=== PATIENT | female | born 1985 | race Caucasian/White ===

== ENCOUNTER 2016-12-13 17:52 | Emergency (ER) | payer SELFPAY ==
[2016-12-13 18:06] VITALS: BP 137/80
--- NOTE | 2016-12-13 19:23 | ER Document Report ---
HPI - HPI Patient complains to provider of: Sore throat and fever Onset: Other Onset/Duration: Gradual Quality of pain: Achy, Burning Severity: Severe Pain Level: 5 Context: Patient states she has had a sore throat and a fever for a couple of days. Patient has a history of strep. Patient has multiple allergies but states she can take a Z-Feliciano and Bactrim. Associated Symptoms: Fever, Sore throat Exacerbated by: Denies Relieved by: Denies Similar symptoms previously: Yes Recently seen / treated by doctor: No - ROS ROS below otherwise negative: Yes Systems Reviewed and Negative: Yes All other systems reviewed and negative - CONSTITUTIONAL Constitutional: REPORTS: Fever - EENT EENT: REPORTS: Sore Throat. DENIES: Congestion - NEURO Neurology: DENIES: Headache - CARDIOVASCULAR Cardiovascular: DENIES: Chest pain - RESPIRATORY Respiratory: DENIES: Trouble Breathing - GASTROINTESTINAL Gastrointestinal: DENIES: Abdominal Pain - URINARY Urinary: DENIES: Dysuria - REPRODUCTIVE Reproductive: DENIES: : - MUSCULOSKELETAL Musculoskeletal: DENIES: Extremity pain - DERM Skin Color: Normal Past Medical History - General Information source: Patient - Social History Smoking Status: Current Some Day Smoker Cigarette use (# per day): Yes Frequency of alcohol use: Occasional Drug Abuse: None Lives with: Family Family History: Reviewed & Not Pertinent - Medical History Medical History: Negative Surgical Hx: Negative - Immunizations Hx Diphtheria, Pertussis, Tetanus Vaccination: Yes - 2013 [facility] Provider Document - CONSTITUTIONAL Agree With Documented VS: Yes Exam Limitations: No Limitations General Appearance: WD/WN, No Apparent Distress - INFECTION CONTROL TRAVEL OUTSIDE OF THE [place] IN LAST 30 DAYS: No - HEENT HEENT: Atraumatic, Normocephalic, Pharyngeal Erythema. negative: Pharyngeal Exudate Notes: TMs normal. - NECK Neck: Lymphadenopathy-Left, Lymphadenopathy-Right - RESPIRATORY Respiratory: Breath Sounds Normal, No Respiratory Distress O2 Sat by Pulse Oximetry: 100 - CARDIOVASCULAR Cardiovascular: Regular Rate, Regular Rhythm - GI/ABDOMEN Gastrointestinal: Abdomen Soft - MUSCULOSKELETAL/EXTREMETIES Musculoskeletal/Extremeties: MAEW - NEURO Level of Consciousness: Awake, Alert, Appropriate - DERM Integumentary: Warm, Dry, No Rash Course - Vital Signs Vital signs: Temp Pulse Resp BP Pulse Ox 98.9 F 87 18 137/80 H 100 12/13/16 18:06 12/13/16 18:06 12/13/16 18:06 12/13/16 18:06 12/13/16 18:06 Discharge - Discharge Clinical Impression: Pharyngitis Qualifiers: Pharyngitis/tonsillitis etiology: unspecified etiology Qualified Code(s): J02.9 - Acute pharyngitis, unspecified Condition: Good Disposition: HOME, SELF-CARE Additional Instructions: Finish antibiotics as prescribed Tylenol or Motrin as needed for pain and/or fever Salt water gargles or lozenges Replace your toothbrush in 2 days Follow-up with your primary care doctor or return if symptoms worsen. Prescriptions: Azithromycin [Zithromax 250 mg Tablet] 250 mg PO ASDIR PRN #6 tablet PRN Reason: Forms: Return to Work
== END 2016-12-13 19:42 | disposition home or self-care (01) ==
LOC: ER 17:52
DX: J02.9 Acute pharyngitis, unspecified (principal); R50.9 Fever, unspecified; F17.210 Nicotine dependence, cigarettes, uncomplicated
CPT/HCPCS: 99282

== ENCOUNTER 2019-02-15 19:42 | Emergency (ER) | payer SELFPAY ==
[2019-02-15] MEDS ORDERED: ONDANSETRON 4 MG TAB.RAPDIS PO ONE (20:33)
[2019-02-15] MEDS ORDERED: KETOROLAC TROMETHAMINE 60 MG/2 ML SDV IM ONE (20:33)
[2019-02-15] MEDS ORDERED: NORMAL SALINE 1000 ML 1,000 ML IV ONE (20:33)
--- NOTE | 2019-02-15 20:35 | ER Document Report ---
ED Medical Screen (RME) - General Chief Complaint: Flank Pain Stated Complaint: LEFT SIDE PAIN/VOMITING Time Seen by Provider: 02/15/19 20:27 TRAVEL OUTSIDE OF THE [place] IN LAST 30 DAYS: No - HPI Notes: 02/15/19 20:34 33-year-old female to the emergency department with complaints of left-sided flank pain that began suddenly this afternoon at about approximately 4 PM. She has had associated radiation into her left abdomen as well as nausea and vomiting. She denies any fevers or chills. She denies any diarrhea. She is never had a kidney stone. Her sister has had kidney stones. She has not seen a ny blood in her urine. She denies any dysuria or frequency. I have performed a brief medical screening exam on the patient and determined that she will need further management and evaluation by main side provider. I placed initial orders to help expedite her care this evening. - Related Data Allergies/Adverse Reactions: clindamycin [Clindamycin] Allergy (Verified 12/13/16 18:05) latex Allergy (Verified 02/15/19 20:30) Penicillins Allergy (Verified 12/13/16 18:05) cephalexin monohydrate [From Keflex] Adverse Reaction (Verified 12/13/16 18:05) doxycycline [Doxycycline] Adverse Reaction (Verified 12/13/16 18:05) erythromycin base [Erythromycin Base] Adverse Reaction (Verified 12/13/16 18:05) all antibiotics Allergy (Intermediate, Uncoded 12/13/16 18:05) Hives Past Medical History Renal/ Medical History: Denies: Hx Peritoneal Dialysis - Immunizations Hx Diphtheria, Pertussis, Tetanus Vaccination: Yes - 2012 Physical Exam - Vital signs Vitals: Temp Pulse Resp BP Pulse Ox 97.9 F 62 16 138/84 H 99 02/15/19 19:50 02/15/19 19:50 02/15/19 19:50 02/15/19 19:50 02/15/19 19:50 Course - Vital Signs Vital signs: Temp Pulse Resp BP Pulse Ox 97.9 F 62 16 138/84 H 99 02/15/19 19:50 02/15/19 19:50 02/15/19 19:50 02/15/19 19:50 02/15/19 19:50
[2019-02-15 21:43] LABS: ABSOLUTE EOSINOPHILS # (AUTO) 0.1 10^3/uL (0.0-0.6); ABSOLUTE LYMPHOCYTES (AUTO) 1.5 10^3/uL (0.5-4.7); ABSOLUTE MONOCYTES (AUTO) 0.4 10^3/uL (0.1-1.4); ABSOLUTE NEUT (AUTO) 10.3 10^3/uL (1.7-8.2); BASOPHILS % (AUTO) 0.2 % (0-2); EOSINOPHILS % (AUTO) 0.7 % (0-6); HEMATOCRIT 41.4 % (36.0-47.0); HEMOGLOBIN 14.3 g/dL (12.0-15.5); MEAN CORPUSCULAR HEMOGLOBIN 31.6 pg (27.0-33.4); MEAN CORPUSCULAR HGB CONC 34.6 g/dL (32.0-36.0); MEAN CORPUSCULAR VOLUME 91 fl (80-97); MONOCYTES % (AUTO) 3.5 % (3-13); PLATELET COUNT 279 10^3/uL (150-450); RED BLOOD COUNT 4.53 10^6/uL (3.72-5.28); RED CELL DISTRIBUTION WIDTH 13.1 % (11.5-14.0); SEGMENTED NEUTROPHILS % (AUTO) 83.6 % (42-78); TOTAL CELLS COUNTED % (AUTO) 100 %; WHITE BLOOD COUNT 12.3 10^3/uL (4.0-10.5)
[2019-02-15 21:52] LABS: AMORPHOUS SEDIMENT,URINE TRACE /HPF; APPEARANCE,URINE SLIGHTLY-CLOUDY; BILIRUBIN,URINE NEGATIVE (NEGATIVE); CALCIUM OXALATE CRYSTALS,URINE FEW /HPF; COLOR,URINE YELLOW; GLUCOSE, URINE NEGATIVE (NEGATIVE); KETONES,URINE NEGATIVE (NEGATIVE); PROTEIN,URINE 100 mg/dL (NEGATIVE); URINE SPECIFIC GRAVITY 1.028; UROBILINOGEN,URINE NEGATIVE mg/dL (<2.0)
[2019-02-15 22:02] LABS: ALBUMIN 4.8 g/dL (3.5-5.0); ALKALINE PHOSPHATASE 73 U/L (38-126); ANION GAP 13 (5-19); ASPARTATE AMINO TRANSFERASE 28 U/L (14-36); BILIRUBIN,DIRECT 0.1 mg/dL (0.0-0.4); BILIRUBIN,TOTAL 0.5 mg/dL (0.2-1.3); BLOOD UREA NITROGEN 13 mg/dL (7-20); CALCIUM 10.1 mg/dL (8.4-10.2); CARBON DIOXIDE 26 mmol/L (22-30); CHLORIDE 101 mmol/L (98-107); GLUCOSE 136 mg/dL (75-110); POTASSIUM 4.1 mmol/L (3.6-5.0); TOTAL PROTEIN 7.9 g/dL (6.3-8.2)
--- NOTE | 2019-02-15 22:15 | RADIOLOGY REPORT (SQ) ---
EXAM DESCRIPTION: CT ABDOMEN PELVIS WITHOUT IV CONTRAST COMPLETED DATE/TME: 02/15/2019 20:33 CLINICAL HISTORY: 33 years, Female, left flank pain, eval stone COMPARISON: None. TECHNIQUE: 374 Images stored on PACS. All CT scanners at this facility use dose modulation, iterative reconstruction, and/or weight based dosing when appropriate to reduce radiation dose to as low as reasonably achievable (ALARA). [facility]: Dose Right [facility]: CareDose [facility]: Dose Right [facility]: Teradose 4D [facility]: [employer] LIMITATIONS: None. FINDINGS: Limited evaluation of the lung bases is unremarkable. Osseous structures are grossly intact. Probable fatty infiltrative change to the liver. The spleen, adrenal glands, pancreas are unremarkable. Multiple nonobstructing renal calculi bilaterally. The gallbladder is present. Mild/moderate left hydroureteronephrosis, secondary to a 5.1 mm mid left ureteral calculus. No gross evidence for bowel obstruction. No free air or free fluid. Appendix not well seen. No pericecal inflammatory change to suggest acute appendicitis. There is a 6.6 x 6.6 cm cystic structure in the right adnexa. IMPRESSION: Multiple nonobstructing renal calculi bilaterally. Mild/moderate left hydroureteronephrosis secondary to a 5.1 mm mid left ureteral calculus. 6.6 cm right adnexal cyst. Recommend prompt follow-up with pelvic ultrasound, as per below. Recommendations for Probably benign adnexal cysts on CT and MR:(1)(2) (benign-appearing cysts on non IV-contrast CT or with one or more of the following complicating factors: angulated margins, not round or oval, poorly visualized such as obscured by artifact or low S/N.) Pre-menopause (<= 50 years if LMP unknown): <=3 cm: No follow-up imaging recommended >3 cm - <=5 cm: US f/u 6-12 weeks >5 cm - <=7 cm: US f/u promptly >7 cm: Consider MR w/IVC or surgical evaluation Early post-menopause (<=5 years from LMP; > 50 years to <= 55 years if LMP unknown): <=3 cm: No follow-up imaging recommended >3 cm - <=7 cm: US f/u promptly >7 cm: Consider MR w/IVC or surgical evaluation Late post-menopause (>5 years from LMP; > 55 years if LMP unknown): <=1 cm: No follow-up imaging recommended >1 cm - <=7 cm: US f/u promptly >7 cm: Consider MR w/IVC or surgical evaluation (1)Recommendations based on the 2013 ACR White Paper for Managing Incidental Adnexal Findings on Abdominal and Pelvic CT and MRI: J Am Hayder Radiol 2013;10:675-681 (2)Excludes normal/benign findings such as ovarian calcifications w/o associated non-calcified mass, corpus luteum cyst, previously characterized cyst and cyst with documented stability in size and appearance for >2 years. TECHNICAL DOCUMENTATION: Quality ID # 436: Final reports with documentation of one or more dose reduction techniques (e.g., Automated exposure control, adjustment of the mA and/or kV according to patient size, use of iterative reconstruction technique) copyright 2011 [facility]- All Rights Reserved
[2019-02-16] MEDS ORDERED: PROCHLORPERAZINE MALEATE 10 MG TABLET PO ONE (01:34)
[2019-02-16] MEDS ORDERED: OXYCODONE-ACETAMINOPHEN 5-325 MG TABLET PO ONE (01:35)
--- NOTE | 2019-02-16 01:41 | ER Document Report ---
ED General - General Chief Complaint: Flank Pain Stated Complaint: LEFT SIDE PAIN/VOMITING Time Seen by Provider: 02/15/19 20:27 Primary Care Provider: [facility] [Provider Group] - Follow up as needed TRAVEL OUTSIDE OF THE [place] IN LAST 30 DAYS: No - HPI Notes: 33-year-old female seen for left flank pain. Mild and intermittent for the past 3 days. Became much more significant this evening and was associated with nausea and vomiting. No fever or chills. No personal history of renal stones but sister has had recurrent stones. Good general health. No regular medications. No prior hospitalizations or surgery. - Related Data Allergies/Adverse Reactions: clindamycin [Clindamycin] Allergy (Verified 12/13/16 18:05) latex Allergy (Verified 02/15/19 20:30) Penicillins Allergy (Verified 12/13/16 18:05) cephalexin monohydrate [From Keflex] Adverse Reaction (Verified 12/13/16 18:05) doxycycline [Doxycycline] Adverse Reaction (Verified 12/13/16 18:05) erythromycin base [Erythromycin Base] Adverse Reaction (Verified 12/13/16 18:05) all antibiotics Allergy (Intermediate, Uncoded 12/13/16 18:05) Hives Past Medical History - General Information source: Patient, Relative - Social History Smoking Status: Current Every Day Smoker Family History: Reviewed & Not Pertinent Patient has suicidal ideation: No Patient has homicidal ideation: No Renal/ Medical History: Denies: Hx Peritoneal Dialysis - Immunizations Hx Diphtheria, Pertussis, Tetanus Vaccination: Yes - 2012 Review of Systems - Review of Systems Notes: Constitutional: Negative for fever. HENT: Negative for sore throat. Eyes: Negative for visual changes. Cardiovascular: Negative for chest pain. Respiratory: Negative for shortness of breath. Gastrointestinal: Negative for abdominal pain, vomiting or diarrhea. Genitourinary: As per HPI. Musculoskeletal: No joint symptoms. Skin: Negative for rash. Neurological: Negative for headaches, weakness or numbness. 10 point ROS negative except as marked above and in HPI. Physical Exam - Vital signs Vitals: Temp Pulse Resp BP Pulse Ox 97.9 F 62 16 138/84 H 99 02/15/19 19:50 02/15/19 19:50 02/15/19 19:50 02/15/19 19:50 02/15/19 19:50 - Notes Notes: GENERAL: Well-developed well-nourished appearing in mild pain. Note that the patient received IM Toradol prior to my evaluation. SKIN: Good turgor no rashes. HEAD: Normocephalic atraumatic. EYES: PERRLA. EOMI. Conjunctivae and sclerae clear. EARS: CANALS AND TMS CLEAR. NOSE: CLEAR. MOUTH: Moist mucosa. Good dentition. No stridor or edema. No drooling. NECK: Supple. No masses or thyromegaly. No adenopathy. Carotids 2+ without bruits. No JVD. BACK: Symmetrical without tenderness. CHEST: Respirations unlabored. Breath sounds clear and symmetrical. HEART: Regular rhythm. No murmur gallop or rub. ABDOMEN: Soft nontender without masses, organomegaly or rebound. Bowel sounds normally active. No bruits. GENITALIA: Deferred. EXTREMITIES: No edema. No calf tenderness. Cap refill less than 1.5 seconds. Dorsalis pedis and posterior tibial pulses 3+ and symmetrical. NEUROLOGICAL: GCS 15. Alert and oriented x3. Normal gait. Fluent speech. Cranial nerves II through XII intact. Sensorimotor and cerebellar normal. Normal tone. PSYCHIATRIC: Appropriate affect. Course - Re-evaluation Re-evalutation: 02/16/19 01:43 Patient was minimally symptomatic by the time I saw her. We gave her some additional oral analgesia here as she declined an IV start. I spoke with her and her at some length about renal stones and recommendations for management and urologic follow-up. She was also advised of potential abnormality of the right adnexa and need for outpatient pelvic ultrasound and follow-up with [employer]. - Vital Signs Vital signs: Temp Pulse Resp BP Pulse Ox 98.2 F 76 16 115/66 96 02/16/19 01:44 02/16/19 01:44 02/16/19 01:44 02/16/19 01:44 02/16/19 01:44 - Laboratory Result Diagrams: 02/15/19 21:09 02/15/19 21:09 Laboratory results interpreted by me: 02/15/19 02/15/19 02/15/19 21:09 21:09 21:09 WBC 12.3 H Lymph % (Auto) 12.0 L Absolute Neuts (auto) 10.3 H Seg Neutrophils % 83.6 H Glucose 136 H Urine Protein 100 H Urine Blood LARGE H 02/16/19 01:39 Significant microscopic hematuria present - Diagnostic Test Radiology reviewed: Reports reviewed Radiology results interpreted by me: 02/16/19 01:42 5.1 cm obstructing calculus mid ureter on the left. Incidental note is made of a right adnexal cyst with follow-up recommended by radiologist Discharge - Discharge Clinical Impression: Ureterolithiasis with renal colic, Right adnexal cyst Condition: Stable Disposition: HOME, SELF-CARE Additional Instructions: Kidney Stone You are passing or have passed a kidney stone. These stones are usually due to increased calcium or uric acid concentrations in your urine. Stones within the kidney itself are not painful. The pain occurs as the stone leaves the kidney to pass down the long tube, called the ureter, leading to the bladder. If the stone is small, it will usually pass by itself. Most patients can pass the stone at home. You will usually receive medications for pain, nausea or vomiting, and sometimes a medication to assist in passing the kidney stone. However, if the pain is very severe or if vomiting prevents you from taking oral pain medications, you may need to return for further treatment. Drink three or four quarts of fluids per day. You will be given pain medication (if needed) and urine strainers. Strain all your urine to see if the stone passes. If your doctor has asked you to bring the stone in for analysis, return with the stone once it has passed. Return if pain or vomiting become severe, if you develop a high fever, if you are unable to pass your urine, or if other unusual symptoms occur. Return here as needed for new or worsening symptoms: Pain that is worsening or unimproved Uncontrolled vomiting High fever or shaking chills Overall worsening Follow-up with a urologist as recommended. Increase oral fluid intake. A cyst in the right side of your pelvis was also identified on CT scan. This is unrelated to the symptoms you came in with tonight but will need follow-up with an outpatient ultrasound exam and follow-up with your personal physician or trolley operator within the next 2 weeks. Prescriptions: Tamsulosin HCl [Flomax 0.4 mg Cap.sr] 0.4 mg PO DAILY #7 cap.sr.24h Ondansetron [Zofran Odt 4 mg Tablet] 1 - 2 tab PO Q4H PRN #15 tab.rapdis PRN Reason: For Nausea/Vomiting Referrals: [facility] [Provider Group] - Follow up as needed
[2019-02-16 01:45] VITALS: BP 115/66
[2019-02-16] MEDS ORDERED: HYDROCODONE/ACETAMINOPHEN 5-325 MG (6 TAB/ER DISP) PO PRN (02:03)
== END 2019-02-16 02:11 | disposition home or self-care (01) ==
LOC: ER 19:42
DX: N20.1 Calculus of ureter (principal); N83.8 Other noninflammatory disorders of ovary, fallopian tube and broad ligament; R10.9 Unspecified abdominal pain; R11.10 Vomiting, unspecified; F17.200 Nicotine dependence, unspecified, uncomplicated; Z91.040 Latex allergy status; Z88.0 Allergy status to penicillin; Z88.3 Allergy status to other anti-infective agents
CPT/HCPCS: 99284; 96372; 36415; 83690; 84703; 85025; 80053; 81001; 74176; J1885; S0119; S0183

== ENCOUNTER 2019-02-28 11:58 | Emergency (ER) | payer SELFPAY ==
[2019-02-28] MEDS ORDERED: KETOROLAC TROMETHAMINE INJ/PF 30 MG/1 ML SDV IV ONE (12:21)
--- NOTE | 2019-02-28 12:23 | ER Document Report ---
ED Medical Screen (RME) - General Chief Complaint: Possible Kidney Stone Stated Complaint: LEFT FLANK PAIN Time Seen by Provider: 02/28/19 12:18 Mode of Arrival: Ambulatory Information source: Patient Notes: Patient presents with left flank pain that started this morning. Patient has a history of kidney stones and suspects the same today. Patient denies any fever, nausea, vomiting, or urinary symptoms. I have greeted and performed a rapid initial assessment of this patient. A comprehensive ED assessment and evaluation of the patient, analysis of test results and completion of the medical decision making process will be conducted by additional ED providers. TRAVEL OUTSIDE OF THE [place] IN LAST 30 DAYS: No - Related Data Allergies/Adverse Reactions: clindamycin [Clindamycin] Allergy (Verified 12/13/16 18:05) latex Allergy (Verified 02/15/19 20:30) Penicillins Allergy (Verified 12/13/16 18:05) cephalexin monohydrate [From Keflex] Adverse Reaction (Verified 12/13/16 18:05) doxycycline [Doxycycline] Adverse Reaction (Verified 12/13/16 18:05) erythromycin base [Erythromycin Base] Adverse Reaction (Verified 12/13/16 18:05) all antibiotics Allergy (Intermediate, Uncoded 12/13/16 18:05) Hives Past Medical History - Social History Frequency of alcohol use: None Drug Abuse: None Renal/ Medical History: Denies: Hx Peritoneal Dialysis - Immunizations Hx Diphtheria, Pertussis, Tetanus Vaccination: Yes - 2012 Physical Exam - Vital signs Vitals: Temp Pulse Resp BP Pulse Ox 99.3 F 99 16 148/94 H 96 02/28/19 12:02/28/19 12:02/28/19 12:02/28/19 12:02/28/19 12:06 - Back Back: CVA tenderness - Left Course - Vital Signs Vital signs: Temp Pulse Resp BP Pulse Ox 99.3 F 99 16 148/94 H 96 02/28/19 12:02/28/19 12:02/28/19 12:02/28/19 12:02/28/19 12:06
[2019-02-28] MEDS ORDERED: ONDANSETRON 4 MG TAB.RAPDIS PO ONE (12:51)
[2019-02-28] MEDS ORDERED: OXYCODONE-ACETAMINOPHEN 5-325 MG TABLET PO ONE (12:51)
[2019-02-28] MEDS ORDERED: KETOROLAC TROMETHAMINE 60 MG/2 ML SDV IM ONE (12:51)
--- NOTE | 2019-02-28 12:52 | ER Document Report ---
ED General - General Chief Complaint: Possible Kidney Stone Stated Complaint: LEFT FLANK PAIN Time Seen by Provider: 02/28/19 12:18 Mode of Arrival: Ambulatory Notes: Patient presents with left-sided flank pain radiating around the left side onset this morning severe with nausea but no vomiting. No diarrhea no fever. Seen here Anders Starr and diagnosed with a 5 mm kidney stone. Pain is gotten better so she did not follow-up. TRAVEL OUTSIDE OF THE [place] IN LAST 30 DAYS: No - Related Data Allergies/Adverse Reactions: clindamycin [Clindamycin] Allergy (Verified 12/13/16 18:05) latex Allergy (Verified 02/15/19 20:30) Penicillins Allergy (Verified 12/13/16 18:05) cephalexin monohydrate [From Keflex] Adverse Reaction (Verified 12/13/16 18:05) doxycycline [Doxycycline] Adverse Reaction (Verified 12/13/16 18:05) erythromycin base [Erythromycin Base] Adverse Reaction (Verified 12/13/16 18:05) all antibiotics Allergy (Intermediate, Uncoded 12/13/16 18:05) Hives Past Medical History - General Information source: Patient - Social History Smoking Status: Current Every Day Smoker Frequency of alcohol use: None Drug Abuse: None Family History: Reviewed & Not Pertinent Patient has suicidal ideation: No Patient has homicidal ideation: No Renal/ Medical History: Denies: Hx Peritoneal Dialysis - Immunizations Hx Diphtheria, Pertussis, Tetanus Vaccination: Yes - 2012 Review of Systems - Review of Systems Notes: REVIEW OF SYSTEMS GEN: Denies fever, chills, weight loss ENT: Denies sore throat, nasal discharge, ear pain EYES: Denies blurry vision, eye pain, discharge CV: Denies chest pain, palpitations, edema RESP: Denies cough, shortness of breath, wheezing GI: Nausea MSK: Back pain SKIN: Denies rash, skin lesions LYMPH: Denies swollen glands/lymph nodes NEURO: Denies headache, focal weakness or numbness, dizziness PSYCH: Denies depression, suicidal or homicidal ideation PHYSICAL EXAMINATION General: No acute distress, well-nourished Head: Atraumatic, normocephalic ENT: Mouth normal, oropharynx moist, no exudates or tonsillar enlargement Eyes: Conjunctiva normal, pupils equal, lids normal Neck: No JVD, supple, no guarding CVS: Normal rate, regular rhythm, no murmurs Resp: No resp distress, equal and normal breath sounds bilaterally GI: Nondistended, soft, no tenderness to palpation, no rebound or guarding Ext: No deformities, no edema, normal range of motion in upper and lower ext Back: No CVA or midline TTP Skin: No rash, warm Lymphatic: No lymphadeopathy noted Neuro: Awake, alert. Face symmetric. GCS 15. Physical Exam - Vital signs Vitals: Temp Pulse Resp BP Pulse Ox 99.3 F 93 16 148/94 H 97 02/28/19 12:05 02/28/19 12:05 02/28/19 12:05 02/28/19 12:05 02/28/19 12:05 Course - Re-evaluation Re-evalutation: 02/28/19 15:07 Presents left flank pain. UA shows infection. CT shows distal 6 mm stone more distal than it was last time but nonetheless creating some hydroureter. Patient looks well has minimal tenderness, she has multiple antibiotic sensitivities/allergies. Give her a dose of Cipro in the ED based on her sensitivities to see if she will tolerate without hives or anaphylaxis. Discussed with Charanjit mac who is accepted the patient to transfer and will take the stone out tonight. - Vital Signs Vital signs: Temp Pulse Resp BP Pulse Ox 98.5 F 89 16 147/86 H 97 02/28/19 14:01 02/28/19 14:01 02/28/19 14:01 02/28/19 14:01 02/28/19 14:01 - Laboratory Laboratory results interpreted by me: 02/28/19 13:23 Urine Blood MODERATE H Ur Leukocyte Esterase MODERATE H - Diagnostic Test Radiology reviewed: Image reviewed, Reports reviewed Discharge - Discharge Clinical Impression: Renal colic on left side Condition: Good Disposition: [facility]
--- NOTE | 2019-02-28 13:18 | RADIOLOGY REPORT (SQ) ---
EXAM DESCRIPTION: CT ABD/PELVIS NO ORAL OR IV COMPLETED DATE/TIME: 02/28/2019 1:03 pm REASON FOR STUDY: Flank pain, history of kidney stone flank COMPARISON: 02/15/2019 TECHNIQUE: CT scan of the abdomen and pelvis performed without intravenous or oral contrast. Images reviewed with lung, soft tissue, and bone windows. Reconstructed coronal and sagittal MPR images revi ewed. All images stored on PACS. All CT scanners at this facility use dose modulation, iterative reconstruction, and/or weight based d osing when appropriate to reduce radiation dose to as low as reasonably achievable (ALARA). [facility]: Dose Right [facility]: CareDose [facility]: Dose Right [facility]: Teradose 4D [facility]: [employer] RADIATION DOSE: mGy. LIMITATIONS: None. FINDINGS: LOWER CHEST: No significant findings. No nodules or infiltrates. NON-CONTRASTED LIVER, SPLEEN, ADRENALS: Evaluation limited by lack of IV contrast. No identified sign ificant masses. PANCREAS: No masses. No peripancreatic inflammatory changes. GALLBLADDER: No identified stones by CT criteria. No inflammatory changes to suggest cholecystitis. RIGHT KIDNEY AND URETER: No suspicious masses. Assessment limited by lack of IV contrast. Punctate nonobstructing stones, largest in lower pole measuring 3 mm, stable. No hydronephrosis or hydrouret er. LEFT KIDNEY AND URETER: No suspicious masses. Assessment limited by lack of IV contrast. Moderate l eft-sided hydroureteronephrosis to the level of the distal ureter where there is a obstructing 6 mm s tone, which has mildly progressed from prior. AORTA AND RETROPERITONEUM: No aneurysm. No retroperitoneal masses or adenopathy. BOWEL AND PERITONEAL CAVITY: No obvious masses or inflammatory changes. No free fluid. APPENDIX: Normal. PELVIS, BLADDER, AND ABDOMINAL WALL:There is a low-density cystic lesion within the right hemipelvis measuring 6.6 cm, similar to prior. Decompressed urinary bladder. Unremarkable uterus. BONES: No acute bony abnormality. No suspicious lytic or blastic osseous lesions. OTHER: No other significant finding. IMPRESSION: 1. 6 mm left lower ureteral obstructing stone which has mildly progressed from prior. Moderate associated hydroureteronephrosis. 2. Additional nonobstructing right renal stones, largest measuring 3 mm. 3. Stable cystic lesion within the right hemipelvis measuring 6.6 cm, likely ovarian in etiology. F ollow-up recommendations as below. COMMENT: Followup of asymptomatic adnexal cysts found on CT or MRI in reproductive age patients *Benign cyst ?5 cm: No followup needed *Benign cyst >5 cm: US at 6-12 weeks to assess resolution *Probably benign cyst ?3 cm: No followup needed *Probably benign cyst >3 and ?5 cm: US at 6-12 weeks to assess resolution *Probably benign cyst >5 cm: US *Other imaging features, probable diagnostic: manage as appropriate for diagnosis *Other imaging features, not specific: US Note: If cyst is clinically symptomatic or otherwise concerning, other followup may be necessary. Bas ed on Managing Incidental Findings on Abdominal and Pelvic CT and MRI, Part 1: White Paper of the ACR Incidental Findings Committee II on Adnexal Findings J Am Hayder Radiol 2013;10:675-681. Quality ID # 436: Final reports with documentation of one or more dose reduction techniques (e.g., Au tomated exposure control, adjustment of the mA and/or kV according to patient size, use of iterative reconstruction technique) TECHNICAL DOCUMENTATION: JOB ID: [id number] [employer]- All Rights Reserved Reading location - IP/workstation name: [email or web address]
[2019-02-28 13:42] LABS: APPEARANCE,URINE SLIGHTLY-CLOUDY; BILIRUBIN,URINE NEGATIVE (NEGATIVE); COLOR,URINE YELLOW; GLUCOSE, URINE NEGATIVE (NEGATIVE); KETONES,URINE NEGATIVE (NEGATIVE); LEUKOCYTE ESTERASE,URINE MODERATE (NEGATIVE); NITRITE,URINE NEGATIVE (NEGATIVE); PROTEIN,URINE NEGATIVE (NEGATIVE); URINE SPECIFIC GRAVITY 1.017; UROBILINOGEN,URINE NEGATIVE mg/dL (<2.0)
[2019-02-28] MEDS ORDERED: CIPROFLOXACIN HCL 500 MG TABLET PO ONE (13:58)
[2019-02-28] MEDS: NITROFURANTOIN MONOHYD/M-CRYST 100 MG CAPSULE PO ONE ×2 (14:01→14:11)
[2019-02-28 16:26] VITALS: BP 137/68
== END 2019-02-28 16:22 | disposition short-term general hospital (02) ==
LOC: ER 11:58
DX: N13.2 Hydronephrosis with renal and ureteral calculous obstruction (principal); N39.0 Urinary tract infection, site not specified; R11.0 Nausea; R10.9 Unspecified abdominal pain; M54.9 Dorsalgia, unspecified; F17.200 Nicotine dependence, unspecified, uncomplicated; Z88.1 Allergy status to other antibiotic agents; Z91.040 Latex allergy status; Z88.0 Allergy status to penicillin
CPT/HCPCS: 99285; 96372; 81001; 74176; J1885; S0119; J8499